=== PATIENT | female | born 2000 | race Caucasian/White ===

== ENCOUNTER 2024-08-28 12:29 | Outpatient (REF) | payer MEDICAID, SELFPAY ==
--- OUTSIDE RECORDS SUMMARY | 2024-08-28 15:46 | XMS_ITS | Clinical Summary ---
Author Organization [facility] Address [address] [place] [address] Care Team Providers Care Encephalographer Name Role Phone Cynthia Ba Primary Care Provider [phone] Allergies No known active allergies Medications norelgestromin-e thinyl estradiol (XULANE) 150-35 mcg/[address] 1 patch on the skin once a week. Active Social History Tobacco Use Types Packs/Day Years Used Date Smoking Tobacco: Never Assessed Comments Unknown Sex and Gender Information Value Date Recorded Sex Assigned at Female 07/14/2023 7:06 PM EST Legal Sex Female 7:06 PM EST Gender Identity Female 07/14/2023 7:06 PM EST Sexual Orientation Don't know 07/14/2023 7: 06 PM EST Plan of Treatment Not on file Insurance [facility] Care Teams Encephalographer Relationship Specialty Start Date End Date MejiaSrinatha [address] [place] [address], [address] [place] [address] PCP - General 01/18/21
--- OUTSIDE RECORDS SUMMARY | 2024-08-28 15:46 | XMS_ITS | Encounter Summary ---
Author Organization [facility] Address [address] [place] [address] Phone Care Team Providers Care Him Analyst Name Role Phone Cynthia Ba MD Primary Care Provider [phone] Cynthia Ba MD Primary Care Provider [phone] Cynthia Ba MD Unavailable [phone] Encounter Details Date Type Department Care Team (Late st Contact Info) Description 02/24/2020 [facility] [address] [place] [address] Social History Tobacco Use Types Packs/Day Years Used Date Smoking Tobacco: Never Smokeless Tobacco: Never Alcohol Use Standard Drinks/Week Comments No 0 (1 standard drink = 0.6 oz pur e alcohol) Sex and Gender Information Value Date Recorded Sex Assigned at Female 08/13/2017 4:37 PM EST Gender Identity Female 06/25/2017 9:37 AM EST Sexual Orientation Straight 08/27/2024 5: 51 PM EDT documented as of this encounter Plan of Treatment Upcoming Encounters Date Type Department Care Team (Late st Contact Info) Description 11/06/2024 12:30 PM EDT Evaluation [facility] Audiology Main [place] [address] [address] Evelyn Silva Gladys, AuD [address] [place] [address] KARINA@[email or web address] Bobbi Spann, AuD [address] [place] [address] Marta@[email or web address] 11/06/2024 1:30 PM EDT Office Visit [facility] Ot[facility] [address] [address] Leo Owen MD [address] [place] [address] / [place] [address] Chelsy@[email or web address] documented as of this encounter Visit Diagnoses Not on filedocumented in this encounter Additional Health Concerns Infection Onset Date Last Indicated Resolved Time CoV-Risk 03/06/2023 03/06/2023 03/17/2023 1:22 AM EDT documented as of this encounter Care Teams Him Analyst Relationship Specialty Start Date End Date Cynthia Ba MD [address] [place] [address] [email or web address] PCP - General Family Medicine 01/22/17 3 Cynthia Ba MD [address] [place] [address] [email or web address] PCP - General Family Medicine 03/06/23 Cynthia Ba MD [address] [place] [address] [email or web address] Family Medicine 03/06/23 documented as of this encounter Additional Source Comments The information contained in this document represents components of the legal health record. It is not the complete legal health record.[facility]
--- OUTSIDE RECORDS SUMMARY | 2024-08-28 15:48 | XMS_ITS | Encounter Summary ---
Author Organization [facility] Address [address] [place] [address] Phone Care Team Providers Care Nanny Caregiver Name Role Phone Cynthia Ba MD Primary Care Provider [phone] Cynthia Ba MD Primary Care Provider [phone] Cynthia Ba MD Unavailable [phone] Encounter Details Date Type Department Care Team (Late st Contact Info) Description 02/09/2022 Procedure Pass [facility] - [facility] Main [address] [address] Social History Tobacco Use Types Packs/Day Years [...] Info) Description 11/06/2024 12:30 PM EDT Evaluation [facility] Audiology [address] [address] Josealena Evelyn Graham, AuD [address] [place] [address] KARINA@[email or web address] Bobbi Spann, Jonny [address] [place] [address] Marta@[email or web address] 11/06/2024 1:30 PM EDT Office Visit [facility] Otol[facility] [address] [address] Leo Owen MD [address] [place] [address] / [place] [address] Chelsy@[email or web address] documented as of this encounter Visit Diagnoses Not on filedocumented in this encounter Additional Health Concerns Infection Onset Date Last Indicated Resolved Time CoV-Risk 03/06/2023 03/06/2023 03/17/2023 1:2 2 AM EDT documented as of this encounter Care Teams Nanny Caregiver Relationship Specialty Start Date End Date Cynthia Ba MD [address] [place] [phone] [email or web address] PCP - General Family Medicine 01/22/17 3 Cynthia Ba MD [address] [place] [address] [email or web address] PCP - General Family Medicine 03/06/23 Cynthia Ba MD [address] [place] [phone] [email or web address] 03/06/23 documented as of this encounter Additional Source Comments The information contained in this document represents components of the legal health record. It is not the complete legal health record.[facility]
--- OUTSIDE RECORDS SUMMARY | 2024-08-28 15:48 | XMS_ITS | Encounter Summary ---
Author Organization [facility] Address [address] [place] [address] Phone Care Team Providers Care Air Chief Marshal Name Role Phone Cynthia Ba MD Primary Care Provider [phone] Cynthia Ba MD Unavailable [phone] Encounter Details Date Type Department Care Team (Late st Contact Info) Description 08/27/2024 Procedure Pass [facility] Scan - [address] [address] Social History Tobacco Use Types Packs/Day Years Used Date Smoking Tobacco: Never Smokeless Tobacco: Never Alcohol Use Standard Drinks/Week Comments No 0 (1 standard drink = 0.6 oz pur e alcohol) Education Answer Date Recorded Are you interested in more education? Not on chirag e 10/13/2022 Are you concerned about learning? Not on file 10/13/2022 No 10/13/2022 No 10/13/2022 Digital Access Answer Date Recorded No 11/13/2022 No 11/13/2022 Reliable internet access at home? Not on file 11/13/2022 Device with a working camera? Not on file Intimate Partner Violence Answer Date R ecorded Are you denied basic needs s uch as food, clothing, or medical care? No 08/27/2024 In the past 12 months have y ou been in a relationship with a person who hurts, threatens, or tries to control you? No 08/27/2024 Are you denied basic needs s uch as food, clothing, or medical care? No 08/27/2024 In the past 12 months have y ou been in a relationship with a person who hurts, threatens, or tries to control you? No 08/27/2024 Sex and Gender Information Value Date Recorded Sex Assigned at Female 08/13/2017 4:37 PM EST Gender Identity Female 06/25/2017 9:37 AM EST Sexual Orientation Straight 08/27/2024 5: 51 PM EDT documented as of this encounter Plan of Treatment Upcoming Encounters Date Type Department Care Team ([facility] st Contact Info) Description 11/06/2024 12:30 PM EDT Evaluation [facility] Audiology [address] [address] Evelyn Silva AuD [address] [place] [address] KARINA@[email or web address] Bobbi Spann, Jonny [address] [place] [address] Marta@[email or web address] 11/06/2024 1:30 PM EDT Office Visit [facility] Otolaryngology [address] [address] Leo Owen MD [address] [place] [address] / [place] [address] Chelsy@[email or web address] documented as of this encounter Visit Diagnoses Not on filedocumented in this encounter Care Teams Air Chief Marshal Relationship Specialty Start Date End Date Cynthia Ba MD [address] [place] [address], [address] [address] blade@[email or web address] PCP - General Family Medicine 03/06/23 Cynthia Ba MD [address] [place] [address] [address] [address] blade@[email or web address] [facility] 03/06/23 documented as of this encounter Additional Source Comments The information contained in this document represents components of the legal health record. It is not the complete legal health record.[facility]
--- OUTSIDE RECORDS SUMMARY | 2024-08-28 15:48 | XMS_ITS | Encounter Summary ---
Author Organization [facility] Address [address] [place] [address] Phone Care Team Providers Care Frame Table Operator Helper Name Role Phone Cynthia Ba MD Primary Care Provider [phone] Cynthia Ba MD Primary Care Provider [phone] Cynthia Ba MD Unavailable [phone] Encounter Details Date Type Department Care Team (Late st Contact Info) Description 08/23/2020 Procedure Pass [facility] - [facility] Main [address] [address] Social History Tobacco Use Types Packs/Day Years [...] Info) Description 11/06/2024 12:30 PM EDT Evaluation [facility] Audiology [address] [address] Josealena Evelyn Graham, AuD [address] [place] [address] KARINA@[email or web address] Bobbi Spann, Jonny [address] [place] [address] Marta@[email or web address] 11/06/2024 1:30 PM EDT Office Visit [facility] Otol[facility] [address] [address] Leo Owen MD [address] [place] [address] / [place] [address] Chelsy@[email or web address] documented as of this encounter Visit Diagnoses Not on filedocumented in this encounter Additional Health Concerns Infection Onset Date Last Indicated Resolved Time CoV-Risk 03/06/2023 03/06/2023 03/17/2023 1:2 2 AM EDT documented as of this encounter Care Teams Frame Table Operator Helper Relationship Specialty Start Date End Date Cynthia Ba MD [address] [place] [address] [email or web address] PCP - General Family Medicine 01/22/17 3 Cynthia Ba MD [address] [place] [address] [email or web address] PCP - General Family Medicine 03/06/23 Cynthia Ba MD [address] [place] [address] [email or web address] 03/06/23 documented as of this encounter Additional Source Comments The information contained in this document represents components of the legal health record. It is not the complete legal health record.[facility]
--- OUTSIDE RECORDS SUMMARY | 2024-08-28 15:48 | XMS_ITS | Clinical Summary ---
Author Organization [facility] Address [address] [place] [address] Phone Care Team Providers Care Network Technician Name Role Phone Cynthia Ba MD Primary Care Provider [phone] Cynthia Ba MD Unavailable [phone] Cynthia Ba MD Unavailable [phone] Allergies Active Allergy Reactions Criticality Noted Date Comments House Dust Mite 02/16/2017 Reaction Type from PowerChart: Allergy; Medications INV-albuterol HFA inhaler 90 mcg/inh Inhale 2 puffs every 4 hours if needed (cough or difficulty breathing). 3 Active mometasone-form oterol (Dulera) 100-5 mcg/actuation inhaler Inhale 2 puffs 2 times a day. 3 Active fluticasone (Flovent HFA) 110 mcg/actuation inhaler Inhale 2 puffs 2 times a day. 3 Active hydroxychloroqu ine (Plaquenil) 300 mg tablet Take 1 tablet by mouth 1 time each day. 4 Active Active Problems Problem Noted Date Diagnosed Date Conductive hearing loss 08/06/2018 Glaucoma suspect 05/18/2017 Overview (10/25/2023): 05/18/2017 14:VALENTÍN GALVAN MD Added by [facility] Dry eye syndrome 05/18/2017 Overview (10/25/2023): 05/18/2017 14:VALENTÍN GALVAN MD Added by [facility] Myopia 05/18/2017 Overview (10/25/2023): 05/18/2017 14:VALENTÍN GALVAN MD Added by [facility] Arthralgia of multiple joints 02/01/2017 Overview (10/25/2023): 02/01/2017 17:Gretchen DIAZ MD, FATMA Added by [facility] Elevated rheumatoid factor 02/01/2017 Overview (10/25/2023): 02/01/2017 17:Gretchen DIAZ MD, FATMA Added by [facility] Hypermobility syndrome 02/01/2017 Overview (10/25/2023): 02/01/2017 17:Gretchen DIAZ MD, FATMA Added by [facility] Irregular sleep-wake rhythm 02/01/2017 Overview (10/25/2023): 02/01/2017 17:Gretchen DIAZ MD, FATMA Added by [facility] Xerostomia 02/01/2017 Overview (10/25/2023): 02/01/2017 17:Gretchen DIAZ MD, FATMA Added by [facility] Perforation of left tympanic membrane 01/29/2017 Poor balance of body weight 01/29/2017 Communication disorder 06/04/2013 Benign neoplasm of scalp 04/10/2013 Overview (10/25/2023): 04/10/2013 13:CORA REEDER MD, I Added by [facility] Benign neoplasm of skin of face 04/10/2013 Overview (10/25/2023): 04/10/2013 13:CORA REEDER MD, I Added by [facility] Immunizations Immunization Administration Dates Next Due Influenza Nasal, Unspecified 03/19/2014 Influenza, Unspecified 04/24/2023,2021,06/18/2021,06/18,04/24/2021,03/09/2020,05/26/2015 Meningococcal ACWY, unspecified 12/09/2018 Pfizer Purple Cap SARS-CoV-2 04/25/2021,10/12/19 21,09/20/2020 Pfizer SARS-CoV-2 Bivalent 3 0 mcg/0.3 mL 06/20/2022 Social History Tobacco Use Types Packs/Day Years Used Date Smoking Tobacco: Never Smokeless Tobacco: Never Tobacco Cessation:Counseling Given: Not Answered Comments Unknown Sex and Gender Information Value Date Recorded Sex Assigned at Not on file Legal Sex Female 5:11 PM EDT Gender Identity Not on file Sexual Orientation Not on file Last Filed Vital Signs Vital Sign Reading Time Taken Comments Blood Pressure 112/78 05/09/2023 8:09 AM EST Pulse 89 05/09/2023 8:09 AM EST Temperature 36.9 ??C (98.4 ??F) 01/17/2021 1:20 PM ED T Respiratory Rate 16 05/09/2023 8:09 AM EST Oxygen Saturation 100% 05/09/2023 8:09 AM EST Inhaled Oxygen Concentration - - Weight 62.3 kg (137 lb 5.6 oz) 06/13/2023 9:56 A M EST Height 176 cm (5' 9.29 ) 06/13/2023 9:56 AM EST Body Mass Index 20.11 06/13/2023 9:56 AM EST Plan of Treatment Health Maintenance Due Date Last Done Comments HIV Screening 2002 MMR Vaccines (1 of 1 - Standard series) 09/29/2003 DTaP/Tdap/Td Vaccines (1 - Tdap) 2009 Varicella Vaccines (1 of 2 - 13+ 2-dose series) 09/29/2015 HPV Vaccines (1 - 3-dose series) 2017 Hepatitis C Screening 2020 Hepatitis B Vaccines (1 of 3 - 19+ 3-dose series) 2021 COVID-19 Vaccine ( - season) 2024 06/20/2022, 04/25/2021, 10/11/2020, Additional history exists Influenza Vaccine (#1) 2024 , 05/25/2022, 06/18/2021, Additional history exists Meningococcal Vaccine Completed 12/09/2018 HIB Vaccines Aged Out No longer eligi ble based on patient's age to complete this topic Hepatitis A Vaccines Aged Out No long er eligible based on patient's age to complete this topic IPV Vaccines Aged Out No longer eligi ble based on patient's age to complete this topic Pneumococcal Vaccine: Pediatrics (0 to 5 Years) and At-Risk Patients (6 to 49 Years) Aged Out No longer eligible based on patient's age to complete this topic Rotavirus Vaccines Aged Out No longer eligible based on patient's age to complete this topic Insurance [facility] Member Subscriber Plan / Payer (Ef fective 2024-Present) Name:Darlin Ayala Relation to Subscriber:Self Name:Darlin Ayala Payer ID:Not on file Group ID:Not on file Type:Liability Address: [employer] CUST[employer]ER [employer].ATTN:CLAIMS [address] [place] [address] Care Teams Network Technician Relationship Specialty Start Date End Date Cynthia Ba MD [address] [place] [address] PCP - General 09/22/13 Cynthia Ba MD [address] [place] [address] PCP - Clinical PCP 09/22/13 Cynthia Ba MD [address] [place] [address] PCP - Insurance PCP 09/22/13
--- OUTSIDE RECORDS SUMMARY | 2024-08-28 15:48 | XMS_ITS | Clinical Summary ---
Author Organization [facility] [employer] [facility] [employer] Address [address] [facility] [place] [address] Care Team Providers Care Drawer In Jacquard Loom Name Role Phone Pcp, No Primary Care Provider [phone] Allergies Active Allergy Reactions Criticality Noted Date Comments House Dust 09/15/2020 Medications ProAir HFA 90 mcg/actuation inhaler INHALE 2 PUFFS BY MOUTH EVERY 4 HOURS NEEDED FOR COUGH OR DIFFICULTY BREATHING 1 Active Flovent HFA 110 mcg/actuation inhaler INHALE 2 PUFFS BY MOUTH TWICE DAILY 1 Active Social History Tobacco Use Types Packs/Day Years Used Date Smoking Tobacco: Never Smokeless Tobacco: Never Tobacco Cessation:Counseling Given: Not Answered Comments No Sex and Gender Information Value Date Recorded Sex Assigned at Not on file Legal Sex Female 12:38 PM EDT Gender Identity Not on file Sexual Orientation Not on file Last Filed Vital Signs Vital Sign Reading Time Taken Comments Blood Pressure 116/80 05/01/2022 5:26 PM EST Pulse 98 11/22/2020 12:40 PM EDT Temperature 36.6 ??C (97.8 ??F) 11/22/2020 12:40 PM E DT Respiratory Rate - - Oxygen Saturation 99% 11/22/2020 12:40 PM EDT Inhaled Oxygen Concentration - - Weight - - Height - - Body Mass Index - - Plan of Treatment Health Maintenance Due Date Last Done Comments Depression: Screening Annually using PHQ-2/9 in Adults 18 yrs or above (or HM Modifier)([facility]) 2020 Hepatitis C Virus Infection in Adolescents and Adults: Screening (or Modifier) ([facility]) 2020 SDOH Screening Reminder: Annually for all adults ([facility]) 2020 Tobacco Smoking Cessation: i n Adults excluding Women: Behavioral and Pharmacotherapy Interventions ([facility]) 2020 Cervical Cancer Screenin-65 yrs of age (or Modifier) 09/29/2023 Cervical Cancer Screening: Pap every 3 yrs pts age 21-65 09/29/2023 Cervical Cancer: Pap Screening with Modifier timing ([facility]) 09/29/2023 Cervical Cancer: hrHPV alone or with cotesting Pap for Pts 30-65yrs screening every 5yrs ([facility]) 09/29/2023 Flu Vaccination: Yearly for ages 18mos through 64 years (or Modifier)([facility]) 01/17/2024 DTaP/Tdap/Td Vaccines ([facility]) (7 - Td or Tdap) 02/11/2024 02/10/2014, 09/09/2007, 12/30/2003, Additional history exists COVID-19 Vaccine Screening: Initial Series and Booster Status ([facility]) (2023- season) 2024 Zoster/Shingles Vaccine Series Screening: Adults aged 18+ yrs (or HM Modifiers)([facility]) (1 of 2) 2052 09/30/2007, 10/13/2003 Lipid Screening: Once for Women aged 20 to 45 yrs ([facility]) Completed 09/02/2020 Pneumococcal Vaccination Screening: Pts 0-19 & 19-64 yrs of age ([facility]) Aged Out No longer eligible based on patient's age to complete this topic Medical Devices Not on file Care Teams Drawer In Jacquard Loom Relationship Specialty Start Date End Date Pcp, No PCP - General Family Medicine 05/01/22
--- OUTSIDE RECORDS SUMMARY | 2024-08-28 15:48 | XMS_ITS | Encounter Summary ---
Author Organization [facility] Address [address] [place] [phone] Phone Care Team Providers Care Senior It Assistant Name Role Phone Cynthia Ba MD Primary Care Provider [phone] Cynthia Ba MD Primary Care Provider [phone] Cynthia Ba MD Unavailable [phone] Encounter Details Date Type Department Care Team (Late st Contact Info) Description 05/09/2019 [facility] [address] [place] [address] Social History Tobacco Use Types Packs/Day Years [...] Info) Description 11/06/2024 12:30 PM EDT Evaluation [facility] [place] Main [place] [address] [address] Evelyn Silva Gladys, AuD [address] [place] [address] KARINA@[email or web address] Bobbi Spann, AuD [address] [place] [address] Marta@[email or web address] 11/06/2024 1:30 PM EDT Office Visit [facility] Otolaryngology [address] [address] Leo Owen MD [address] [place] [address] / [place] [address] [email or web address] documented as of this encounter Visit Diagnoses Not on filedocumented in this encounter Additional Health Concerns Infection Onset Date Last Indicated Resolved Time CoV-Risk 03/06/2023 03/06/2023 03/17/2023 1:22 AM EDT documented as of this encounter Care Teams Senior It Assistant Relationship Specialty Start Date End Date Cynthia Ba MD [address] [place] [phone] [email or web address] PCP - General Family Medicine 01/22/17 3 Cynthia Ba MD [address] [place] [address] [email or web address] PCP - General Family Medicine 03/06/23 Cynthia Ba MD [address] [place] [address] [email or web address] Family Medicine 03/06/23 documented as of this encounter Additional Source Comments The information contained in this document represents components of the legal health record. It is not the complete legal health record.[facility]
--- OUTSIDE RECORDS SUMMARY | 2024-08-28 15:48 | XMS_ITS | Encounter Summary ---
Author Organization [facility] Address [address] [place] [phone] Phone Care Team Providers Care Client Portfolio Manager Name Role Phone Cynthia Ba MD Primary Care Provider Cynthia Ba MD Unavailable [phone] Reason for Visit * Reason Comments Abdominal Pain Encounter Details Date Type Department Care Team (Late st Contact Info) Description 08/27/2024 3:36 PM EDT - 08/27/2024 7:48 PM EDT Emergency [facility] [address] [place] [id number] Discharge Disposition: Home or Self Care Social History Tobacco Use Types Packs/Day Years [...] PM EDT documented as of this encounter Last Filed Vital Signs Vital Sign Reading Time Taken Comments Blood Pressure 118/83 08/27/2024 7:21 PM EDT Pulse 82 08/27/2024 7:21 PM EDT Temperature 36.7 ??C (98 ??F) 08/27/2024 7:21 PM EDT Respiratory Rate 18 08/27/2024 7:21 PM EDT Oxygen Saturation 100% 08/27/2024 7:21 PM EDT Inhaled Oxygen Concentration - - Weight 69.4 kg (153 lb) 08/27/2024 3:28 PM EDT Height 175.3 cm (5' 9 ) 08/27/2024 3:28 PM EDT Body Mass Index 22.59 08/27/2024 3:28 PM EDT documented in this encounter Discharge Instructions * Discharge Instructions* Konrad Otoole PA-C - 08/27/2024 7:41 PM EDT You were seen in the emergency department today for evaluation of abdominal pain. We did a broad medical workup today including blood work, urinalysis, CAT scan. There were no concerning abnormalities noted. At this time it is not entirely clear what is causing your pain. I recommended that you stay for ultrasound to rule out ovarian torsion but you declined to stay for the study. As we discussedif that is what is going on and you do not have it evaluated quickly there is a potential that you could lose your ovary. You stated your understanding of this risk and declined the study anyways. I encourage you to return to the emergency department anytime to have this evaluation completed. Certainly, if you would like to have this done outpatient please contact your primary care team and your FOOD ADVISER but as it is a time sensitive emergent process I encourage you to try to get it done through the emergency department as it is much quicker than attempting to get an outpatient study done. documented in this encounter Medications at Time of Discharge Medication Sig Dispensed Refills Start Date End Date acetaminophen (TYLENOL) 160 mg/5 mL Susp Take 20 mL (640 mg total) by mouth every 6 (six) hours as needed (mild pain). 05/09/2019 albuterol 90 mcg/actuation inhaler INHALE 2 PUFFS BY MOUTH EVERY 4 HOURS NEEDED FOR COUGH OR DIFFICULTY BREATHING 11/07/2020 ciprofloxacin-dexametha sone (CIPRODEX) otic suspension 4 drops by Each Ear route 2 (two) times a day. 7.5 mL 11/12/2019 doxycycline monohydrate (MONODOX) 100 MG capsule Take 1 capsule (100 mg total) by mouth 2 (two) times a day. 20 capsule 03/06/2023 hydrOXYchloroQUINE (PLAQUENIL) 200 mg tablet Take by mouth daily. ZAFEMY 150-35 mcg/[address] 1 PATCH ON THE SKIN ONCE A WEEK 11/04/2022 documented as of this encounter ED Notes * Kym Castaneda RN - 08/27/2024 7:47 PM EDT ED Discharge Nursing Note Patient verbalized understanding of d/c papers and to follow up with pcp. Patient denies pain SOB dizziness n/v. Patient encouraged to come back with worsening symptoms. * Kym Castaneda RN - 08/27/2024 7:22 PM EDT ED Nursing Progress Note Patient requesting to leave. Patient upset that she has been waiting a long time. Patient reassuredand awaiting cat scan results. * Kym Castaneda RN - 08/27/2024 6:37 PM EDT ED Nursing Progress Note Patient resting Awaiting cat scan results. In AND denies complaints. * Kym Castaneda RN - 08/27/2024 6:03 PM EDT ED Nursing Progress Note Patient declined fluids, zofran, and toradol. I just want a cat scan and to go home . Patien resting in NAD breathing unlabored. * Carol Ellsworth RN - 08/27/2024 3:28 PM EDT Patient presented to ED with abdominal pain that started Sunday. She was seen at [facility] today and was told to go to the ED to rule out appendicitis. She vomited on Sunday but hasn't since. She reports worsening pain every time she eats. She has not had much of a appetite since Sunday. Tendernesson palpation to RLQ. No rebound pain noted. Patient does not appear to be in any acute distress. * Konrad Otoole PA-C - 08/27/2024 3:26 PM EDT Chief Complaint Chief Complaint Patient presents with Abdominal Pain History of Present Illness The patient, Darlin Ayala,is a 23 y.o. female who presents for evaluation of Abdominal Pain The patient reports that 3 days ago she suddenly had pain in the right lower quadrant with associated nausea and vomiting. Pain has been persistent since with radiation to the umbilicus. Patient reports pain is worse with certain movements. Denies any abnormal vaginal bleeding or discharge. Denies any urinary symptoms, change in bowel movements. Denies fever/chills, cough/URI symptoms. Patient went to [facility] who referred the patient to the emergency department for rule out appendicitis. Unless otherwise specified, I have reviewed and agree with the triage and nursing notes. ROS A ten point review of systems was negative except what was noted in the HPI. Review of Systems Past Medical History Past Medical History: Diagnosis Date Perforated ear drum Rheumatoid arthritis Sjogren's disease Tinnitus Past Surgical History Past Surgical History: Procedure Laterality Date ENDOSCOPIC MIDDLE EAR Left 02/24/2020 Performed by Leo Owen MD at [facility] OR GRAFT CARTILAGE Left 05/09/2019 Performed by Leo Owen MD at [facility] OR MYRINGOPLASTY Left 02/24/2020 Performed by Leo Owen MD at [facility] OR REVISION TYMPANOPLASTY Left 02/24/2020 Performed by Leo Owen MD at [facility] OR TYMPANOPLASTY Left 05/09/2019 Performed by Leo Owen MD at [facility] OR TYMPANOSTOMY TUBE PLACEMENT TYMPANOSTOMY TUBE PLACEMENT Home Medications Prior to Admission medications Medication Sig acetaminophen (TYLENOL) 160 mg/5 mL Susp 15 mg/kg, Oral, Every 6 hours PRN Patient not taking: No sig reported albuterol 90 mcg/actuation inhaler INHALE 2 PUFFS BY MOUTH EVERY 4 HOURS NEEDED FOR COUGH OR DIFFICULTY BREATHING ciprofloxacin-dexamethasone (CIPRODEX) otic suspension 4 drops, Each Ear, 2 times daily Patient not taking: No sig reported doxycycline monohydrate (MONODOX) 100 MG capsule 100 mg, Oral, 2 times daily hydrOXYchloroQUINE (PLAQUENIL) 200 mg tablet Oral, Daily ZAFEMY 150-35 mcg/[address] 1 PATCH ON THE SKIN ONCE A WEEK Allergies Allergies Allergen Reactions Dust [House Dust Mite] Social and Family History Social History Tobacco Use Smoking status: Never Smokeless tobacco: Never Substance Use Topics Alcohol use: No Social History Substance and Sexual Activity Drug Use No Family History Problem Relation Age of Onset Hypertension Father Strabismus Father Brain tumor Maternal Grandmother Glaucoma Maternal Grandfather Physical Exam Vital Signs: ED Triage Vitals [08/27/24 1528] Encounter Vitals Group BP (!) 144/93 Systolic BP Percentile Diastolic BP Percentile Heart Rate (!) 110 Respiratory Rate 18 Temperature 36 ??C (96.8 ??F) Temp Source Temporal SpO2 98 % Weight 153 lb Height 5' 9 Head Circumference Peak Flow Pain Score Pain Loc Pain Education Exclude from Growth Chart Physical Exam Vitals and nursing note reviewed. Constitutional: General: She is not in acute distress. Appearance: Normal appearance. She is not ill-appearing. HENT: Head: Normocephalic and atraumatic. Nose: Nose normal. Mouth/Throat: Mouth: Mucous membranes are moist. Eyes: Conjunctiva/sclera: Conjunctivae normal. Cardiovascular: Rate and Rhythm: Normal rate. Pulmonary: Effort: Pulmonary effort is normal. Abdominal: General: Abdomen is flat. Palpations: Abdomen is soft. Tenderness: There is abdominal tenderness in the right lower quadrant. Musculoskeletal: General: Normal range of motion. Cervical back: Normal range of motion. Skin: General: Skin is warm and dry. Neurological: Mental Status: She is alert and oriented to person, place, and time. Psychiatric: Mood and Affect: Mood normal. Behavior: Behavior normal. Laboratory Testing Results for orders placed or performed during the hospital encounter of 08/27/24 Lipase Specimen: Blood Result Value Ref Range LIPASE 17 16 - 63 U/L LFTs (hepatic panel) Specimen: Blood Result Value Ref Range ALKALINE PHOSPHATASE 68 39 - 117 U/L TOTAL BILIRUBIN 0.5 0.0 - 1.2 mg/dL DIRECT BILIRUBIN 0.2 0.0 - 0.2 mg/dL Bilirubin (Indirect) 0.3 0 - 1.5 mg/dL AST 15 0 - 37 U/L ALT 12 0 - 40 U/L TOTAL PROTEIN 7.5 6.5 - 8.0 g/dL ALBUMIN 4.7 3.9 - 4.8 g/dL GLOBULIN 2.8 1 - 4.8 g/dL A/G Ratio 1.68 1.00 - 4.80 RATIO HCG, serum qualitative Specimen: Blood Result Value Ref Range HCG, QUALITATIVE Negative Negative IU/L Urinalysis w/reflex Urine Culture Specimen: Urine Result Value Ref Range COLOR Yellow Yellow CLARITY HAZY GLUCOSE Negative Negative BILI Negative Negative KETONES Negative Negative SPECIFIC GRAVITY 1.020 1.005 - 1.030 BLOOD Trace (*) Negative PH 6.0 5.0 - 8.0 Protein-UA Negative Negative NITRITE Negative Negative Leukocyte esterase, ur Negative Negative Basic metabolic panel Specimen: Blood Result Value Ref Range SODIUM 141 133 - 146 mmol/L CHLORIDE 104 96 - 108 mmol/L POTASSIUM 4.0 3.3 - 5.1 mmol/L CO2 24 21 - 35 mmol/L BUN 9 6 - 19 mg/dL CREATININE 0.70 0.5 - 1.5 mg/dL GLUCOSE 99 70 - 99 mg/dL CALCIUM 9.5 8.4 - 10.3 mg/dL EGFR >120 >59 mL/min/1.73m2 ANION GAP 17 10 - 20 mmol/L CBC and differential Specimen: Blood Result Value Ref Range WBC 4.95 4.00 - 11.00 K/uL RBC 4.25 4.00 - 5.20 M/uL HGB 13.1 12.0 - 16.0 g/dL HCT 38.3 36.0 - 46.0 % PLT 175 150 - 450 K/uL MCV 90.1 80.0 - 100.0 fL MCH 30.8 27.0 - 31.0 pg MCHC 34.2 32.0 - 36.0 g/dL RDW 12.6 11.5 - 14.5 % MPV 9.4 8.4 - 12.0 fL NRBC 0.00 0.00 /100 WBCs ABSOLUTE NRBC 0.00 0.00 K/uL DIFF METHOD Auto NEUTS 45.8 (L) 48.0 - 76.0 % LYMPHS 46.1 (H) 18.0 - 41.0 % MONOS 6.7 4.0 - 11.0 % EOS 0.8 0.0 - 5.0 % BASOS 0.4 0.0 - 1.5 % Granulocytes, immature (%) 0.2 0.0 - 0.9 % ABSOLUTE NEUTS 2.27 1.92 - 7.60 K/uL ABSOLUTE LYMPHS 2.28 0.72 - 4.10 K/uL ABSOLUTE MONOS 0.33 0.16 - 1.10 K/uL ABSOLUTE EOS 0.04 0.00 - 0.50 K/uL ABSOLUTE BASOS 0.02 0.00 - 0.15 K/uL Granulocytes, immature 0.01 0.00 - 0.09 K/uL Radiology Testing CT Abdomen/Pelvis Final Result No acute abnormality in the abdomen or pelvis. ATTESTATION: I, Antoinette Wilson as teaching physician, have reviewed the images for this case and ifnecessary edited the report originally created by Clement De Jesus MD. Medication from 08/27/2024 1526 to 08/27/20241945 Date/Time Order Dose Route Action Action by Comments 08/27/20241801 EDT sodium chloride 0.9% bolus 1,000 mL 0 mL Intravenous Not Given Kym Castaneda RN -- 08/27/20241801 EDT ketorolac (TORADOL) injection 15 mg 15 mg Intravenous Not Given Kym Castaneda RN -- 08/27/20241801 EDT ondansetron (PF) (ZOFRAN) injection 4 mg 4 mg Intravenous Not Given Kym Castaneda RN -- 08/27/2024 1836 EDT iohexoL (OMNIPAQUE-350) 350 mg iodine/mL solution 100 mL 100 mL Intravenous Given Trace Santana -- [facility] Assessment and Plan: VS w/ tachycardia and mild HTN. Remainder WNL. Pt is well appearing on exam and in NAD. Abdomen w/ TTP RLQ. Blood work from triage reassuring but will check CT abdomen for appy. 15 mg IV Toradol and 4 mg IV Zofran for sx. Category 2 and 3: Independent Interpretation of Tests, Consideration of Tests, or External Discussion of Results: Labs: Laboratory studies were interpreted. Radiology: Radiology studies were independently interpreted. ED Course as of 08/27/241945Aug 27, 20241941 Blood work, urinalysis, CT scan of the abdomen and pelvis are all very reassuring. There is noacute abnormalities noted on CT scan. It is unclear at this time what is causing the patient's pain. There is no ovarian cyst noted on CAT scan so ovarian torsion is lower in the differential but is the only thing left on the differential that could potentially cause right lower quadrant abdominal pain that would be an emergent process. Overall my suspicion is low but would like to rule this etiology out today. Discussed with patient who upon my reevaluation seemed upset and was getting ready to leave. Patient stated to other staff (though would not report this to me) that she has been waiting too long. Shereported to me the need to catch a bus back home as she has no other way to get home. We discussed the fact that we do not know the cause of the pain and I would like to get a ultrasound of the ovaries to be fully reassured against ovarian torsion. Patient states she does not want to stay for the study as she needs to get home. I suggested maybe she call for an Uber or something once the ER stay is done. She stated she could not do this because it cost money. I attempted again to encourage her to stay and I made sure she understood the risk that she could potentially lose her ovary if she does not fact have ovarian torsion and she does not have it evaluated and mitigated quickly. Patient states understanding and still does not want to stay for the study. She plans to try to get this done outpatient. I encouraged her to come back to the emergency department anytime for a reassessment and to have this study done if she changes her mind. Otherwise encouraged her to follow-up with her outpatient care team. [WM] ED Course User Index [WM] Konrad Otoole PA-C Clinical Impressions as of 08/27/241945 Right lower quadrant abdominal pain Clinical Impression Diagnosis Description Comment Final diagnosis Right lower quadrant abdominal pain Right lower quadrant abdominal pain -- Disposition: Home Konrad Otoole PA-C 08/27/241945 documented in this encounter Plan of Treatment Upcoming Encounters Date Type Department Care Team (Late st Contact Info) Description 11/06/2024 12:30 PM EDT Evaluation [facility] Audiology [address] [address] Evelyn Silva, AuD [address] [place] [id number] [email or web address] Bobbi Spann, AuD [address] [place] [phone] [email or web address] 11/06/2024 1:30 PM EDT Office Visit [facility] Otol[facility]ology [address] [address] Leo Owen MD [address] [place] [address] / [place] [address] [email or web address] documented as of this encounter Procedures Procedure Name Priority Date/Time Associated Diagnosis Comments CT ABDOMEN/PELVIS WITH CONTRAST Routine 08/27/2024 6:35 PM EDT URINALYSIS W/REFLEX URINE CULTURE STAT 08/27/2024 5:12 PM EDT HCG, SERUM QUALITATIVE STAT 08/27/2024 3:39 PM EDT LFTS (HEPATIC PANEL) STAT 08/27/2024 3:39 PM EDT CBC AND DIFFERENTIAL STAT 08/27/2024 3:39 PM EDT LIPASE STAT 08/27/2024 3:39 PM EDT BASIC METABOLIC PANEL STAT 08/27/2024 3:39 PM EDT documented in this encounter Results * CT ABDOMEN/PELVIS WITH CONTRAST (08/27/2024 6:35 PM EDT) Anatomical Region Laterality Modality Abdomen, Pelvis Computed Tomogra phy 08/27/2024 7:06 PM EDT Impressions 08/27/2024 7:26 PM EDT No acute abnormality in the abdomen or pelvis. ATTESTATION: I, Antoinette Wilson as teaching physician, have reviewed the images for this case and if necessary edited the report originally created by Clement De Jesus MD. Narrative 08/27/2024 7:[address] ABDOMEN/PELVIS WITH CONTRAST Referring clinician's provided indication for this examination in Epic: * RLQ abdominal pain, appendicitis suspected (Age >= 14y) TECHNIQUE: Multidetector-row CT of the abdomen and pelvis was performed after administration of intravenous contrast using tailored dose modulation techniques. Images were reconstructed in the axial, coronal, and sagittal planes. COMPARISON: None FINDINGS: Lower Chest: No consolidation or pleural effusions. Liver: No focal lesions. Biliary: Normal gallbladder. No biliary ductal dilatation. Spleen: No splenomegaly or focal lesions. Pancreas: No masses or ductal dilatation. Adrenal Glands: Normal. No nodules. Kidneys/Ureters: Normal. ??No solid masses, stones, or hydronephrosis. Bowel: Normal appendix (2:61). Normal small bowel and colon. Peritoneum/Retroperitoneum: No masses, pneumoperitoneum, or fluid. Lymph Nodes: No lymphadenopathy. Pelvic Organs/Bladder: Normal. No mass. Vessels: Normal. No abdominal aortic aneurysm. Bones/Soft Tissues: No significant abnormality. Procedure Note Antoinette Wilson MD - 08/27/2024 CT ABDOMEN/PELVIS WITH CONTRAST Referring clinician's provided indication for this examination in Epic: *RLQ abdominal pain, appendicitis suspected (Age >= 14y) TECHNIQUE: Multidetector-row CT of the abdomen and pelvis was performedafter administration of intravenous contrast using tailored dosemodulation techniques. Images were reconstructed in the axial, coronal,and sagittal planes. COMPARISON: None FINDINGS: Lower Chest: No consolidation or pleural effusions. Liver: No focal lesions. Biliary: Normal gallbladder. No biliary ductal dilatation. Spleen: No splenomegaly or focal lesions. Pancreas: No masses or ductal dilatation. Adrenal Glands: Normal. No nodules. Kidneys/Ureters: Normal. No solid masses, stones, or hydronephrosis. Bowel: Normal appendix (2:61). Normal small bowel and colon. Peritoneum/Retroperitoneum: No masses, pneumoperitoneum, or fluid. Lymph Nodes: No lymphadenopathy. Pelvic Organs/Bladder: Normal. No mass. Vessels: Normal. No abdominal aortic aneurysm. Bones/Soft Tissues: No significant abnormality. IMPRESSION: No acute abnormality in the abdomen or pelvis. ATTESTATION: I, Antoinette Wilson as teaching physician, have reviewed theimages for this case and if necessary edited the report originally createdby Clement De Jesus MD. Konrad Otoole PA-C IMIgor CT ABD/PELVIS * (ABNORMAL) Urinalysis w/reflex Urine Culture (08/27/2024 5:12 PM EDT) COLOR Yellow Yellow [facility] CLARITY HAZY [facility] GLUCOSE Negative Negative [facility] BILI Negative Negative [facility] KETONES Negative Negative [facility] SPECIFIC GRAVITY 1.020 1.005 - 1.030 [facility] BLOOD Trace(A) Negative [facility] PH 6.0 5.0 - 8.0 [facility] Protein-UA Negative Negative [facility] NITRITE Negative Negative [facility] Leukocyte esterase, ur Negative Negative [facility] Urine (Urine) 08/27/2024 5:1 2 PM EDT 08/27/2024 5:19 PM EDT Jose Vanessa MD URINE ORDERABLES Performing Organization Address [facility] Co de Phone Number [address] [phone] * Lipase (08/27/2024 3:39 PM EDT) LIPASE 17 16 - 63 U/L [facility] Blood 08/27/2024 3:39 PM EDT 08/27/2024 3:44 PM EDT Jose Vanessa MD LAB BLOOD ORDERA BLES Performing Organization Address [facility] Co de Phone Number [address] [address] * LFTs (hepatic panel) (08/27/2024 3:39 PM EDT) ALKALINE PHOSPHATASE 68 39 - 117 U/L [facility] TOTAL BILIRUBIN 0.5 0.0 - 1.2 mg/dL [facility] DIRECT BILIRUBIN 0.2 0.0 - 0.2 mg/dL [facility] Bilirubin (Indirect) 0.3 0 - 1.5 mg/dL [facility] AST 15 0 - 37 U/L [facility] ALT 12 0 - 40 U/L [facility] TOTAL PROTEIN 7.5 6.5 - 8.0 g/dL [facility] ALBUMIN 4.7 3.9 - 4.8 g/dL [facility] GLOBULIN 2.8 1 - 4.8 g/dL [facility] A/G Ratio 1.68 1.00 - 4.80 RATIO [facility] Blood 08/27/2024 3:39 PM EDT 08/27/2024 3:44 PM EDT Jose Vanessa MD LAB BLOOD ORDERA BLES Performing Organization Address [facility] Co de Phone Number [address] [address] * HCG, serum qualitative (08/27/2024 3:39 PM EDT) HCG, QUALITATIVE Negative Negative IU/L [facility] Blood 08/27/2024 3:39 PM EDT 08/27/2024 3:44 PM EDT Jose Vanessa MD LAB BLOOD ORDERA BLES Performing Organization Address [facility] Phone Number [address] [address] * Basic metabolic panel (08/27/2024 3:39 PM EDT) SODIUM 141 133 - 146 mmol/L [facility] CHLORIDE 104 96 - 108 mmol/L [facility] POTASSIUM 4.0 3.3 - 5.1 mmol/L [facility] CO2 24 21 - 35 mmol/L [facility] BUN 9 6 - 19 mg/dL [facility] CREATININE 0.70 0.5 - 1.5 mg/dL [facility] GLUCOSE 99 70 - 99 mg/dL [facility] CALCIUM 9.5 8.4 - 10.3 mg/dL [facility] EGFR >120 >59 mL/min/1.7 3m2 [facility] Comment:Estimated glomerular filtration rate calculated using the CKD-EPI refit equation. ANION GAP 17 10 - 20 mmol/L [facility] Blood 08/27/2024 3:39 PM EDT 08/27/2024 3:44 PM EDT Jose Vanessa MD LAB BLOOD ORDERA BLES [facility] [address] [place] [address] * (ABNORMAL) CBC and differential (08/27/2024 3:39 PM EDT) WBC 4.95 4.00 - 11.00 K/uL [facility] RBC 4.25 4.00 - 5.20 M/uL [facility] HGB 13.1 12.0 - 16.0 g/dL [facility] HCT 38.3 36.0 - 46.0 % [facility] PLT 175 150 - 450 K/uL [facility] MCV 90.1 80.0 - 100.0 fL [facility] MCH 30.8 27.0 - 31.0 pg [facility] MCHC 34.2 32.0 - 36.0 g/dL [facility] RDW 12.6 11.5 - 14.5 % [facility] MPV 9.4 8.4 - 12.0 fL [facility] NRBC 0.00 0.00 /100 WBCs [facility] ABSOLUTE NRBC 0.00 0.00 K/uL [facility] DIFF METHOD Auto [facility] NEUTS 45.8(L) 48.0 - 76.0 % [facility] LYMPHS 46.1(H) 18.0 - 41.0 % [facility] MONOS 6.7 4.0 - 11.0 % [facility] EOS 0.8 0.0 - 5.0 % [facility] BASOS 0.4 0.0 - 1.5 % [facility] Granulocytes, immature (%) 0.2 0.0 - 0.9 % [facility] ABSOLUTE NEUTS 2.27 1.92 - 7.60 K/uL [facility] ABSOLUTE LYMPHS 2.28 0.72 - 4.10 K/uL [facility] ABSOLUTE MONOS 0.33 0.16 - 1.10 K/uL [facility] ABSOLUTE EOS 0.04 0.00 - 0.50 K/uL [facility] ABSOLUTE BASOS 0.02 0.00 - 0.15 K/uL [facility] Granulocytes, immature 0.01 0.00 - 0.09 K/uL [facility] Blood 08/27/2024 3:39 PM EDT 08/27/2024 3:44 PM EDT Jose Vanessa MD LAB BLOOD ORDERA BLES [address] [address] documented in this encounter Visit Diagnoses Diagnosis Right lower quadrant abdominal pain- Primary documented in this encounter Administered Medications Inactive Administered Medications - up to 3 most recent administrations Medication Order MAR Action Action Date Dose Rate Site iohexoL (OMNIPAQUE-350) 350 mg iodine/mL solution 100 mL 100 mL, Intravenous, Once as needed, pre procedure/treatment, Starting on Sun08/27/24 at 1836, For 1 dose, Procedural Contrast/Med Active Now, Each mL contains 755 mg of iohexol equivalent to 350 mg of organic iodine. Given 08/27/2024 6:36 PM EDT 100 mL sodium chloride (NS) 0.9 % syringe flush 3 mL 3 mL, Intravenous, As needed, line care, Starting on Sun08/27/24 at 1533, Per Institutional IV Line Care Policy. documented in this encounter Active and Recently Administered Medications Times are shown in EDT. Scheduled Medication Order 08/25/2024 08/26/2024 08/27/2024 ketorolac (TORADOL) injection 15 mg 15 mg, Intravenous, Once, On Sun08/27/24 at 1800, For 1 dose 1802 (Not Given - Pr ovider: Kym Castaneda RN - Reason: Patient/family refused) ondansetron (PF) (ZOFRAN) injection 4 mg 4 mg, Intravenous, Once, On Sun08/27/24 at 1800, For 1 dose 1802 (Not Given - Pr ovider: Kym Castaneda RN - Reason: Patient/family refused) sodium chloride 0.9% bolus 1,000 mL 1,000 mL, Intravenous, Administer over 30 Minutes, at 2,000 mL/hr, Once, On Sun08/27/24 at 1800, For 1 dose 1802 (Not Given - Pr ovider: Kym Castaneda RN - Reason: Patient/family refused) PRN Medication Order 08/25/2024 08/26/2024 08/27/2024 iohexoL (OMNIPAQUE-350) 350 mg iodine/mL solution 100 mL (COMPLETED) 100 mL, Intravenous, Once as needed, pre procedure/treatment, Starting on Sun08/27/24 at 1836, For 1 dose, Procedural Contrast/Med Active Now, Each mL contains 755 mg of iohexol equivalent to 350 mg of organic iodine. 1836 (Given - Provid er: Trace Santana) sodium chloride (NS) 0.9 % syringe flush 3 mL 3 mL, Intravenous, As needed, line care, Starting on Sun08/27/24 at 1533, Per Institutional IV Line Care Policy. documented in this encounter Care Teams Client Portfolio Manager Relationship Specialty Start Date End Date Cynthia Ba MD [address] [place] [address] [id number] [email or web address] - [email or web address] Medicine 03/06/23 Cynthia Ba MD [address] [place] [address] [id number] [email or web address] 03/06/23 documented as of this encounter Additional Source Comments The information contained in this document represents components of the legal health record. It is not the complete legal health record.[facility]
== END 2024-08-28 12:30 | disposition home or self-care (01) ==
LOC: HO.UMASIMG 12:29
PROVIDERS: Visit Provider Family Medicine
DX: Z13.89 Encounter for screening for other disorder (principal)